=== PATIENT | female | born 1955 | race Caucasian/White ===

== ENCOUNTER 2021-04-29 13:41 | Emergency (ER) | payer MEDICAID, MEDICARE ==
[~2021-04-29] VITALS: Ht 152.4 cm; Wt 160.0 kg
[~2021-04-29 13:41] MED LIST: ACET500T64 PO; ALBU8.5H5 INH; BUDE10.22 INH; CETI10TA76 PO; DIPH25CA61 PO; DULO60CA7 PO; EPIN0.3P3 IM; ESOM40CA PO; FURO20TA3 PO; GABA100C PO; HYDR-3237 PO; LOSA25TA25 PO; POTA10CA PO; TIZA-106 PO; TOLT4CAP PO; TOPI25TA8 PO; VITA1TAB3 PO; [UNRECOGNIZED DRUG - CODE] INH
--- NOTE | 2021-04-29 17:45 | NUR ---
PT TO ROOM FROM TRIAGE. PT RESTING IN BED, STATES BILAT LOW BACK PAIN. PLACED ON MONITORS. WILL FOLLOW ORDERS.
--- NOTE | 2021-04-29 18:32 | NUR ---
ERMD AT BEDSIDE FOR ASSESSMENT.
[2021-04-29] MEDS ORDERED: DIAZEPAM 5 MG/ML, 2ML ONE (18:51)
--- NOTE | 2021-04-29 18:56 | NUR ---
PT MEDICATED FOR PAIN PER ORDERS, WILL REASSESS.
[2021-04-29] MEDS ORDERED: MORPHINE SULFATE 4 MG/ML, 1ML IVPush PRN (19:00)
--- NOTE | 2021-04-29 19:01 | NUR ---
REPORT TO CHRIS AGUILAR.
--- NOTE | 2021-04-29 19:03 | NUR ---
Report received and care turned over to meal break RN. Already had Valium per leaving RN. Can have Morphine if still in pain.
[2021-04-29 19:07] LABS: HCT (SEDRATE) 41.2 % (34.6-47.8)
[2021-04-29 19:08] LABS: BASOPHILS % (AUTO) 1 % (0-1); EOSINOPHILS % (AUTO) 1 % (1-7); LYMPHOCYTES % (AUTO) 16 % (22-44); MEAN CORPUSCULAR HEMOGLOBIN 31.2 pg (27.0-34.8); MEAN CORPUSCULAR HGB CONC 33.6 g/dL (32.4-35.8); MEAN PLATELET VOLUME 7.7 fL (7.4-10.4); MONOCYTES % (AUTO) 7 % (2-9); NEUTROPHILS % (AUTO) 75 % (42-75); PLATELET COUNT 322 x10^3/uL (130-400); RED BLOOD COUNT 4.53 x10^6/uL (3.82-5.3); RED CELL DISTRIBUTION WIDTH 15.3 % (9.6-15.2)
[2021-04-29 19:17] LABS: ALBUMIN 3.6 g/dL (3.4-5.0); ANION GAP 4 mmol/L (5-15); CALCIUM 9.6 mg/dL (8.5-10.1); CHLORIDE 105 mmol/L (98-107)
--- NOTE | 2021-04-29 19:24 | NUR ---
BREAK RN: PT TO MRI
[2021-04-29 19:25] LABS: C-REACTIVE PROTEIN, QUANT 0.98 mg/dL (0.02-0.49); CREATININE 0.86 mg/dL (0.55-1.02)
[2021-04-29] MEDS ORDERED: DIAZEPAM 5 MG/ML, 2ML IVPush ONE (19:30)
--- NOTE | 2021-04-29 19:35 | NUR ---
Pt in MRI and care reassumed from break RN.
--- NOTE | 2021-04-29 20:30 | NUR ---
Pt still in MRI. UA sample needed upon pt return.
--- NOTE | 2021-04-29 21:07 | NUR ---
Pt back from MRI. Pt refused straight cath for UA and clean catch obtained. UA sent at this time. Pt still having back spasms.
--- NOTE | 2021-04-29 21:10 | NUR ---
MRI results reviewed. notified of continued back spasms via ED board.
--- NOTE | 2021-04-29 21:18 | NUR ---
Pt's sister called to give her phone number to call for [employer] water [employer] operator if pt is d/c'd stating pt's phone is almost . Paloma [phone], she lives in [place].
[2021-04-29] MEDS ORDERED: KETOROLAC 30 MG/1 ML ONE (21:26)
[2021-04-29 21:27] LABS: MICROSCOPIC INDICATED
[2021-04-29] MEDS ORDERED: MORPHINE SULFATE 4 MG/ML, 1ML ONE (21:27)
[2021-04-29] MEDS ORDERED: KETOROLAC 30 MG/1 ML IVPush ONE (21:30)
--- NOTE | 2021-04-29 21:35 | NUR ---
Pt medicated. Will road test in approx 20 minutes.
--- NOTE | 2021-04-29 22:04 | NUR ---
Report given to Luis, RNs, and care transferred. Aware of meds given and need for roadtest.
[2021-04-29 23:09] VITALS: BP 147/73
--- NOTE | 2021-04-29 23:10 | NUR ---
Patient given discharge instructions and they have confirmed that they understand the instructions. Patient ambulatory with [facility] at [facility]. requesting wheelchair to lobby to wait for ride from sister. NAD, all questions answered appropriately, denies additional needs at this time. No personal belongings left in room after discharge. piv dc'd with tip intact.
== END 2021-04-29 23:12 | disposition home or self-care (01) ==
LOC: ED 18:18
DX: S39.012A Strain of muscle, fascia and tendon of lower back, initial encounter (principal); M51.16 Intervertebral disc disorders with radiculopathy, lumbar region; X58.XXXA Exposure to other specified factors, initial encounter; Y93.89 Activity, other specified; Y92.89 Other specified places as the place of occurrence of the external cause; Y99.8 Other external cause status; I10 Essential (primary) hypertension; E11.9 Type 2 diabetes mellitus without complications
CPT/HCPCS: 36415; 72146; 72148; 80048; 81001; 82040; 85025; 85651; 86140; 87077; 87086; 87186; 96374; 96375; 99285; J1885; J2270; J3360; 99284